=== PATIENT | male | born 1970 | race Caucasian/White ===

== ENCOUNTER 2017-08-08 23:36 | Emergency (ER) | payer BC, OTHER | END 2017-08-09 00:17 | disposition home or self-care (01) | LOC: ERS 23:36 | DX: S16.1XXA Strain of muscle, fascia and tendon at neck level, initial encounter (principal); V89.2XXA Person injured in unspecified motor-vehicle accident, traffic, initial encounter ==

== ENCOUNTER 2017-08-27 11:35 | Outpatient (CLI) | payer OTHER | END 2017-08-27 11:36 | disposition home or self-care (01) | LOC: BICRAD 11:35 | PROVIDERS: ATTEND Family Medicine | DX: M54.9 Dorsalgia, unspecified (principal); M89.8X1 Other specified disorders of bone, shoulder; M47.896 Other spondylosis, lumbar region; M47.894 Other spondylosis, thoracic region | CPT/HCPCS: 72070; 72100 ==